=== PATIENT | male | born 1960 | race Caucasian/White ===

== ENCOUNTER → 2020-12-21 13:01 | Outpatient (CLI) | payer BC, SELFPAY ==
--- NOTE | ~2020-12-21 | MR_ITS ---
EXAMINATION: MR lumbar spine wo con DATE: 12/21/2020 13:42 INDICATION: Low back pain. Lumbar radiculopathy. TECHNIQUE: Magnetic resonance imaging (MRI) of the lumbar spine was performed without intravenous con trast. Sequences included sagittal T2-weighted FSE, sagittal T2-weighted FS FSE, sagittal T1-weighted FSE, and axial T2-weighted FSE. COMPARISON: Lumbar spine radiographs 11/01/2017 FINDINGS: There is 7 degrees levocurvature in the lower lumbar spine. Vertebral body heights are norm al. There is mildly decreased disc height at L3-L4 and severely decreased disc height at L4-L5 and L5 -S1. The distal spinal cord signal intensity is normal. The conus medullaris is at L1. The following disc levels are specifically discussed: L1-L2: The disc does not extend beyond the endplate margin. There is mild bilateral facet joint osteo arthritis. There is no neural foraminal stenosis. There is no central canal stenosis. L2-L3: The disc is mildly bulging. There is moderate bilateral facet joint osteoarthritis. There is m ild bilateral neural foraminal stenosis. There is no central canal stenosis. L3-L4: The disc is bulging and has an annular fissure. There is severe bilateral facet joint osteoart hritis. There is moderate bilateral neural foraminal stenosis. There is moderate central canal stenos is. L4-L5: The disc is bulging and has an annular fissure. There is mild right and severe left facet join t osteoarthritis. There is moderate bilateral neural foraminal stenosis. There is mild central canal stenosis. L5-S1: The disc is bulging and has an annular fissure. There is mild right and severe left facet join t osteoarthritis. There is moderate left neural foraminal stenosis. There is mild central canal steno sis. IMPRESSION: 1. Severe lumbar spondylosis. Reviewed, dictated and finalized at location A.
== END ==
PROVIDERS: Visit Provider Nurse Practitioner Family
DX: M47.26 Other spondylosis with radiculopathy, lumbar region (principal)
CPT/HCPCS: 72148

== ENCOUNTER → 2021-06-22 01:44 | Outpatient (CLI) | payer BC, SELFPAY ==
[2021-06-22 19:33] LABS: SARS-CoV-2 RNA PCR Negative
== END ==
PROVIDERS: PCP Internal Medicine; Visit Provider Neurological Surgery
DX: R68.89 Other general symptoms and signs (principal); Z20.822 Contact with and (suspected) exposure to COVID-19
CPT/HCPCS: C9803; U0003; U0005

== ENCOUNTER 2021-06-22 07:55 | Outpatient (CLI) | payer BC, SELFPAY ==
--- NOTE | 2021-06-22 | ECG_ITS ---
Measurements Intervals [place] Rate: 65 P: 3 VT: 172 QRS: 10 QRSD: 100 T: 29 QT: 390 QTc: 408 Interpretive Statements SINUS RHYTHM INCOMPLETE RIGHT BUNDLE BRANCH BLOCK DELAYED PRECORDIAL R/S TRANSITION BORDERLINE ECG Electronically Signed On 06-22-2021 8:26:09 [employer]CROM[employer]IC [employer] OPERATOR by Jamison Curiel D.O.
== END 2021-06-22 07:56 | disposition home or self-care (01) ==
LOC: ANHCARD 07:58
PROVIDERS: PCP Internal Medicine; Visit Provider Neurological Surgery
DX: Z01.810 Encounter for preprocedural cardiovascular examination (principal); I45.10 Unspecified right bundle-branch block
CPT/HCPCS: 93005; C9803; U0003; U0005

== ENCOUNTER 2023-08-30 06:43 | Day surgery (SDC) | payer BC, SELFPAY ==
[2023-08-06 10:25] VITALS: BMI 28.6
--- NOTE | 2023-08-28 14:39 | SUR.PREOP ---
Patient called regarding upcoming procedure. Reviewed preop instructions, appointment times, and procedure prep.
--- NOTE | 2023-08-29 13:37 | P.HP_ITS ---
History of Present Illness History of Present Illness Consent: Risks, benefits, and alternatives have been discussed and questions answered. Patient agrees to proceed with procedure. Chief complaint: neoplasm screening Narrative: Sumeet Miller is a 62 year old male Referred for colon cancer screening. Review of Systems Review of Systems: All systems reviewed & are unremarkable except as noted in HPI and below PMFSH Past Medical History Medical History Anxiety disorder, unspecified Hyperlipidemia Surgical History Surgical History History of back surgery Family History Family History Mother Diabetes mellitus Father Heart disease Social History Social History Smoking status: Current some day smoker Tobacco type: cigars Second hand tobacco smoke exposure: No Alcohol intake: current Drinks per week: 6 Substance use: never Substance use type: does not use Current Housing: Decline to Answer Concerned About Future Housing: Decline to Answer Difficulty Paying Gas/Electric Bills: Decline to Answer Difficulty Paying for Meds: Decline to Answer Currently Unemployed: Decline to Answer Education: Decline to Answer Difficulty w/ Childcare or Family Care: Decline to Answer Living arrangements: with family Occupation/Education: occupation 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 Home Medications and Allergies Home Medications Medication Instructions Recorded Confirmed Type omega-3 fatty acids 1,000 mg 1,000 mg PO DAILY 08/17/19 08/06/23 History capsule turmeric 400 mg capsule 400 mg PO DAILY 08/18/19 08/06/23 History fluticasone propionate 50 2 spray intranasal DAILY 02/16/20 08/06/23 History mcg/actuation nasal spray,suspension (Flonase Allergy Relief) cholecalciferol (vitamin D3) 10 10 mcg PO DAILY 09/20/21 08/06/23 History mcg (400 unit) capsule simvastatin 20 mg tablet 20 mg PO DAILY #90 tabs 11/01/22 08/06/23 Rx budesonide-formoterol HFA 160 1 puff inhalation BID #10.2 grams 04/03/23 08/06/23 Rx mcg-4.5 mcg/actuation aerosol inhaler (Symbicort) clonazepam 0.5 mg tablet (Klonopin) 0.5 mg PO DAILY PRN anxiety 08/06/23 08/06/23 History sertraline 50 mg tablet (Zoloft) 50 mg PO DAILY 08/06/23 08/06/23 History Allergies Allergy/AdvReac Type Severity Reaction Status Date / Time aspirin Allergy Mild Rash Verified 08/06/23 10:23 azithromycin Allergy Mild Rash Verified 08/06/23 10:23 Exam Resp: Auscultation: clear to auscultation bilaterally Cardio: Rate: regular rate Rhythm: regular rhythm GI: GI Palp: Yes Soft to palpation and No Tenderness to palpation present (GI) Assessment and Plan Assessment and plan (1) Colon cancer screening: Code(s): Z12.11 - Encounter for screening for malignant neoplasm of colon Status: Acute Assessment and Plan: Colonoscopy with possible biopsy or polypectomy or cautery or injection of substances.
[2023-08-30 08:09] VITALS: BP 144/87; PULSE 86; RESP 18; TEMP 36.6; O2SAT 95
[2023-08-30] MEDS: LACTATED RINGERS 1,000 ML 150 ML IV CONT (08:17)
--- NOTE | 2023-08-30 09:17 | WPDANESEPPF ---
Anes - Initial Pre Proc Eval Procedure: Operation Date: 08/30/23 09:30 Proposed Procedures p Screening Colonoscopy - Ronak Herzog MD Date/Time: 08/30/23 09:17 Surgeon: Ronak Herzog MD Pre Op Diagnosis: neoplasm screening Patient Data Age: 62 Gender: M Height: 1.8 m Weight: 93.9 kg Last Vital Signs Temp 97.9 F 08/30/23 08:09 Pulse 86 08/30/23 08:09 Resp 18 08/30/23 08:09 BP 144/87 H 08/30/23 08:09 Pulse Ox 95 08/30/23 08:09 O2 Del Method Room Air 08/30/23 08:09 Allergies Allergy/AdvReac Type Severity Reaction Status Date / Time aspirin Allergy Mild Rash Verified 08/06/23 10:23 azithromycin Allergy Mild Rash Verified 08/06/23 10:23 Home Medications Medication Instructions Recorded Confirmed Type omega-3 fatty acids 1,000 mg 1,000 mg PO DAILY 08/17/19 08/06/23 History capsule turmeric 400 mg capsule 400 mg PO DAILY 08/18/19 08/06/23 History fluticasone propionate 50 2 spray intranasal DAILY 02/16/20 08/06/23 History mcg/actuation nasal spray,suspension (Flonase Allergy Relief) cholecalciferol (vitamin D3) 10 10 mcg PO DAILY 09/20/21 08/06/23 History mcg (400 unit) capsule simvastatin 20 mg tablet 20 mg PO DAILY #90 tabs 11/01/22 08/06/23 Rx budesonide-formoterol HFA 160 1 puff inhalation BID #10.2 grams 04/03/23 08/06/23 Rx mcg-4.5 mcg/actuation aerosol inhaler (Symbicort) clonazepam 0.5 mg tablet (Klonopin) 0.5 mg PO DAILY PRN anxiety 08/06/23 08/06/23 History sertraline 50 mg tablet (Zoloft) 50 mg PO DAILY 08/06/23 08/06/23 History Patient hx anesthesia problems: none Family hx anesthesia problems: none Results Review: All pre-operative results and documents have been reviewed as part of the pre-operative evaluation. [facility] Past Medical History Medical History Anxiety disorder, unspecified Hyperlipidemia Surgical History Surgical History History of back surgery Family History Family History Mother Diabetes mellitus Father Heart disease Social History Social History Smoking status: Current some day smoker Tobacco type: cigars Second hand tobacco smoke exposure: No Alcohol intake: current Drinks per week: 6 Substance use: never Substance use type: does not use Current Housing: Decline to Answer Concerned About Future Housing: Decline to Answer Difficulty Paying Gas/Electric Bills: Decline to Answer Difficulty Paying for Meds: Decline to Answer Currently Unemployed: Decline to Answer Education: Decline to Answer Difficulty w/ Childcare or Family Care: Decline to Answer Living arrangements: with family Occupation/Education: occupation 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 Informed Consent: The patient's anesthetic plan and its attendant risks and benefits were discussed with the patient/family/POA. Questions were solicited and answers provided to the satisfaction of the patient/family/POA.
[2023-08-30] MEDS: SIMETHICONE ORAL SUSPENSION 20 MG/0.3 ML 30 ML BOTTLE 0.6 ML IRRIGATION (09:27)
[2023-08-30 09:35] VITALS: BP 107/72; PULSE 72; RESP 18; O2SAT 96
[2023-08-30 09:45] VITALS: BP 115/82; PULSE 71; RESP 20; O2SAT 97
[2023-08-30 09:55] VITALS: BP 129/89; PULSE 67; RESP 20; O2SAT 96
== END 2023-08-30 10:02 | disposition home or self-care (01) ==
PROVIDERS: PCP Internal Medicine; Visit Provider Internal Medicine Gastroenterology
PROC: 0DJD8ZZ Inspection of Lower Intestinal Tract, Via Natural or Artificial Opening Endoscopic (ICD-10-PCS; CPT 45378; principal; 2023-08-30 09:30)
DX: Z12.11 Encounter for screening for malignant neoplasm of colon (principal); K63.89 Other specified diseases of intestine; K57.30 Diverticulosis of large intestine without perforation or abscess without bleeding; F41.9 Anxiety disorder, unspecified; E78.5 Hyperlipidemia, unspecified
CPT/HCPCS: 45378; J2704; J7120